=== PATIENT | male | born 1945 | race Caucasian/White ===

== ENCOUNTER 2017-10-04 09:26 | Inpatient (IN) | payer MEDICARE ==
[2017-09-27 17:13] LABS: BASOPHILS % (AUTO) 0.3 % (0-1); EOSINOPHILS # (AUTO) 0.1 X10'3 (0-0.9); EOSINOPHILS % (AUTO) 2.5 % (0-6); LYMPHOCYTES # (AUTO) 1.5 X10'3 (1.1-4.8); LYMPHOCYTES % (AUTO) 26.6 % (21-51); MEAN CORPUSCULAR HEMOGLOBIN 29.4 PG (27.0-31.0); MEAN CORPUSCULAR VOLUME 88.9 FL (78-98); MEAN PLATELET VOLUME 9.3 FL (7.4-10.4); MONOCYTES # (AUTO) 0.4 X10'3 (0-0.9); MONOCYTES % (AUTO) 6.4 % (2-12); NEUTROPHILS # (AUTO) 3.7 X10'3 (1.8-7.7); NEUTROPHILS % (AUTO) 64.2 % (42-75); PRE OP HEMATOCRIT 35.8 % (42.0-52.0); PRE OP HEMOGLOBIN 11.8 g/dL (14.0-17.9); PRE OP PLATELET COUNT 175 X10'3 (140-440); RED BLOOD COUNT 4.03 X10'6 (4.70-6.10)
[2017-09-27 17:21] LABS: CLARITY,URINE SLIGHTLY CLOUDY (Clear); COLOR,URINE YELLOW (Yellow); GLUCOSE, URINE NEGATIVE (Neg); KETONES,URINE TRACE mg/dl (Neg); LEUKOCYTE ESTERASE ,URINE NEGATIVE (Neg); NITRITES, URINE NEGATIVE (Neg); OCCULT BLOOD,URINE SMALL (Neg); PH,URINE 5.5 (4.8-8.0); PROTEIN,URINE TRACE mg/dl (Neg); UROBILINOGEN,URINE 0.2 E.U/dL (0.2-1.0)
[2017-09-27 17:29] LABS: ALBUMIN/GLOBULIN RATIO 1.3 (1.1-1.5); ALKALINE PHOSPHATASE 57 IU/L (46-116); BLOOD UREA NITROGEN 25 MG/DL (7-18); BUN/CREATININE RATIO 23.1 (5.4-32.0); CALCIUM 8.7 MG/DL (8.5-10.1); CHLORIDE 105 MMOL/L (99-107); CREATININE 1.08 MG/DL (0.60-1.10); PRE OP ALT 23 U/L (30-65); PRE OP ANION GAP 7 (8-16); PRE OP AST 19 U/L (10-37); PRE OP BILIRUB, TOTAL 0.4 MG/DL (0.0-1.0); PRE OP GLUCOSE 131 MG/DL (70-104); PRE OP POTASSIUM 4.9 MMOL/L (3.4-5.1); PRE OP SODIUM 140 MMOL/L (135-145); TOTAL CARBON DIOXIDE 28.2 MMOL/L (24-32); TOTAL PROTEIN 7.2 G/DL (6.4-8.2); eGFR 67 ML/MIN
[2017-09-27 17:32] LABS: UA COLLECTION TYPE VOIDED
[2017-09-27 17:34] LABS: BACTERIA,URINE FEW /HPF (Neg); MUCUS STRANDS MANY /LPF (Neg); RENAL CELLS, URINE FEW /HPF; SQUAMOUS EPITHELIAL CELL,UR FEW /LPF (FEW); TRANSITIONAL EPI CELLS,URINE FEW /HPF
[2017-10-04] VITALS (20 sets, daily range): BP systolic 104–131; BP diastolic 59–86
[~2017-10-04] VITALS: Ht 182.9 cm; Wt 96.3 kg
[2017-10-04] MEDS: potassium cl 20mEq in 1/2 NS 1,000 ML IV SCH ×2 (07:07→17:42)
[2017-10-04] MEDS: gabapentin 300mg capsule PO SCH ×3 (08:00→20:23)
[2017-10-04] MEDS: acetaminophen 325mg tablet PO SCH ×3 (08:00→20:23)
[~2017-10-04 09:26] MED LIST: ASPI-1190 PO; ASPI-611 PO; ATOR20TA PO; BRIM5DRO2 LEFTEYE; BUTA-281 PO; BUTA1CAP17 PO; CARB15DR2 EACHEYE; Cefazolin 2GM/50ML dext iso,osmotic IVPB IV ONE; DICL100G15 TOP; ESCI10TA PO; GLUC1TAB9 PO; HYDROmorphone inj. 0.5 MG/0.5 ML DISP.SYRIN IV PRN; LISI-604 PO; LUTE1CAP4 PO; MAGN400C PO; MELO15TA13 PO; META800T87 PO; MULT-1165 PO; OXYB10TA4 PO; PER10325T PO; SILO8CAP PO; VITAMIN B12 SL; [UNRECOGNIZED DRUG - CODE] PO; [UNRECOGNIZED DRUG - OTHER] PO; acetaminophen 325mg tablet PO ONE; acetaminophen 325mg tablet PO PRN; albuterol 2.5 MG/3 ML nebule NEB ONE; bisacodyl 10mg suppository rectal RC PRN; celeCOXIB 100mg capsule PO ONE; diphenhydrAMINE 25mg capsule PO PRN; famotidine 20mg tablet PO ONE; gabapentin 300mg capsule PO ONE; magnesium hydroxide 30ml (MOM) UD suspension PO PRN; metoclopramide 5 mg/ml inj IV ONE; ondansetron/PF 4mg/2ml inj IV PRN; oxyCODONE SR 10mg (sust. release) tab PO ONE; ringers solution, lacted 1,000 ML IV SCH; tranexamic acid inj. 1,000 MG in normal saline 100ml IV soln 90 ML IV ONE; vancomycin inj 1,500 MG in normal saline 300ml IV soln IV ONE
[2017-10-04] MEDS ORDERED: LIDOcaine 1% (10mg/ml) 2ml vial ONE (09:32)
[2017-10-04] MEDS ORDERED: cloNIDine hcl/PF 100mcg/ml inj ONE (10:12)
[2017-10-04] MEDS ORDERED: vancomycin 1,000mg inj ONE (10:12)
[2017-10-04] MEDS ORDERED: ketorolac trometh. 30mg/ml inj. ONE (10:12)
[2017-10-04] MEDS ORDERED: epiNEPHrine 1 mg/ml inj ONE (10:12)
[2017-10-04] MEDS ORDERED: ROPIVAcaine 0.5% (5mg/ml) 30ml vial ONE ×2 (10:13→10:53)
[2017-10-04] MEDS ORDERED: BUPIVAcaine/PF 7.5mg/ml (0.75%) 10ml vial ONE (10:53)
[2017-10-04] MEDS ORDERED: tetracaine 1% (10mg/ml) pres. free inj. ONE (10:54)
[2017-10-04] MEDS ORDERED: fentaNYL/PF 50MCG/1 ML 2ML syringe ONE (11:31)
[2017-10-04] MEDS ORDERED: MIDAZolam 1mg/ml 10ml vial ONE (11:31)
[2017-10-04] MEDS ORDERED: ringers solution, lacted 1,000 ML IV SCH (12:31)
[2017-10-04] MEDS ORDERED: proCHLORperazine 10 MG/2 ml inj IV PRN (12:35)
[2017-10-04] MEDS ORDERED: ondansetron/PF 4mg/2ml inj IV PRN (12:35)
[2017-10-04] MEDS ORDERED: meperidine/PF 25mg/ml syringe IV PRN ×3 (12:35)
[2017-10-04] MEDS ORDERED: morphine 4 MG/ML inj SYRINge IV PRN ×2 (12:35)
[2017-10-04] MEDS ORDERED: propofol inj 20 ML IV ONE (13:33)
[2017-10-04] MEDS: cefazolin/dext.iso 2gm/50ml 50 ML IV SCH (17:42)
[2017-10-04] MEDS: atorvastatin 20mg tablet PO SCH (20:23)
[2017-10-04] MEDS: sennosides 8.6mg tablet PO SCH (20:23)
[2017-10-04] MEDS: ascorbic acid 500mg tablet PO SCH (20:23)
[2017-10-04] MEDS: oxybutynin 5mg tablet PO SCH (22:35)
[2017-10-04] MEDS: oxyCODONE IR 5mg (immed. release) tablet PO PRN (22:36)
[2017-10-05] MEDS: acetaminophen 325mg tablet PO SCH ×4 (01:58→21:23)
[2017-10-05] MEDS: cefazolin/dext.iso 2gm/50ml 50 ML IV SCH (01:58)
[2017-10-05 02:00] VITALS: BP 111/41
[2017-10-05] MEDS: potassium cl 20mEq in 1/2 NS 1,000 ML IV SCH ×3 (05:05→23:07)
[2017-10-05] MEDS: oxyCODONE IR 5mg (immed. release) tablet PO PRN ×3 (05:09→22:10)
[2017-10-05 06:00] VITALS: BP 133/58
[2017-10-05 06:00] LABS: BASOPHILS % (AUTO) 0.1 % (0-1); EOSINOPHILS # (AUTO) 0.1 X10'3 (0-0.9); EOSINOPHILS % (AUTO) 0.7 % (0-6); HEMATOCRIT 29.3 % (42.0-52.0); HEMOGLOBIN 9.7 g/dl (14.0-17.9); LYMPHOCYTES # (AUTO) 0.9 X10'3 (1.1-4.8); LYMPHOCYTES % (AUTO) 8.6 % (21-51); MEAN CORPUSCULAR HEMOGLOBIN 29.3 PG (27.0-31.0); MEAN CORPUSCULAR HGB CONC 33.1 % (33.0-36.5); MEAN CORPUSCULAR VOLUME 88.5 FL (78-98); MEAN PLATELET VOLUME 9.6 FL (7.4-10.4); MONOCYTES # (AUTO) 0.5 X10'3 (0-0.9); MONOCYTES % (AUTO) 5.5 % (2-12); NEUTROPHILS # (AUTO) 8.5 X10'3 (1.8-7.7); NEUTROPHILS % (AUTO) 85.1 % (42-75); PLATELET COUNT 138 X10'3 (140-440); RED BLOOD COUNT 3.32 X10'6 (4.70-6.10); RED CELL DISTRIBUTION WIDTH 13.1 % (11.5-14.5)
[2017-10-05 06:14] LABS: ANION GAP 7 (8-16); CHLORIDE 106 MMOL/L (99-107); POTASSIUM 4.9 MMOL/L (3.5-5.1); SODIUM 140 MMOL/L (135-145); TOTAL CARBON DIOXIDE 26.7 MMOL/L (24-32)
[2017-10-05] MEDS: CITALOpram 10mg tablet PO SCH (07:42)
[2017-10-05] MEDS: gabapentin 300mg capsule PO SCH ×3 (07:43→21:23)
[2017-10-05] MEDS: lisinopril 5mg tablet PO SCH (07:43)
[2017-10-05] MEDS: oxybutynin 5mg tablet PO SCH ×2 (07:44→21:23)
[2017-10-05] MEDS: aspirin 325mg tablet PO SCH (07:44)
[2017-10-05] MEDS: magnesium oxide 400mg tablet PO SCH (07:44)
[2017-10-05] MEDS: multivitamins, therapeutics tablet PO SCH (07:45)
[2017-10-05] MEDS: ascorbic acid 500mg tablet PO SCH ×2 (07:45→21:22)
[2017-10-05] MEDS: beta-carotene(A) w/C & E + minerals tab PO SCH (07:45)
[2017-10-05 10:00] VITALS: BP 137/53
[2017-10-05] MEDS ORDERED: ASPI-1 PO (11:01)
[2017-10-05 14:00] VITALS: BP 103/49
[2017-10-05] MEDS ORDERED: HYDROmorphone 1 mg/ml syringe IV PRN (14:50)
[2017-10-05] MEDS: HYDROmorphone 1 mg/ml syringe IV PRN (15:17)
[2017-10-05 18:00] VITALS: BP 115/65
[2017-10-05] MEDS: sennosides 8.6mg tablet PO SCH (21:00)
[2017-10-05] MEDS: atorvastatin 20mg tablet PO SCH (21:22)
[2017-10-05 22:00] VITALS: BP 136/63
[2017-10-05] MEDS: celeCOXIB 100mg capsule PO SCH (22:10)
[2017-10-06] MEDS: HYDROmorphone 1 mg/ml syringe IV PRN (01:41)
[2017-10-06] MEDS: oxyCODONE IR 5mg (immed. release) tablet PO PRN ×2 (03:50→08:48)
[2017-10-06] MEDS: acetaminophen 325mg tablet PO SCH (03:51)
[2017-10-06 05:00] VITALS: BP 136/73
[2017-10-06 08:00] VITALS: BP 153/75
[2017-10-06] MEDS: oxybutynin 5mg tablet PO SCH (08:38)
[2017-10-06] MEDS: CITALOpram 10mg tablet PO SCH (08:38)
[2017-10-06] MEDS: celeCOXIB 100mg capsule PO SCH (08:38)
[2017-10-06] MEDS: magnesium oxide 400mg tablet PO SCH (08:39)
[2017-10-06] MEDS: gabapentin 300mg capsule PO SCH (08:39)
[2017-10-06] MEDS: beta-carotene(A) w/C & E + minerals tab PO SCH (08:39)
[2017-10-06] MEDS: lisinopril 5mg tablet PO SCH (08:40)
[2017-10-06] MEDS: ascorbic acid 500mg tablet PO SCH (08:40)
[2017-10-06] MEDS: multivitamins, therapeutics tablet PO SCH (08:40)
[2017-10-06] MEDS: aspirin 325mg tablet PO SCH (08:40)
== END 2017-10-06 10:20 | disposition home or self-care (01) | DRG 470 ==
LOC: PAS IN 09:26 → EDSTATUS 10:30 → ORTHO 4S 16:00 → UNDODISIN 10-05 11:15
PROVIDERS: ADMIT Orthopaedic Surgery; ATTEND Orthopaedic Surgery
PROC: 3E0T3BZ Introduction of Anesthetic Agent into Peripheral Nerves and Plexi, Percutaneous Approach (ICD-10-PCS; 2017-10-04)
PROC: 0SRC0J9 Replacement of Right Knee Joint with Synthetic Substitute, Cemented, Open Approach (ICD-10-PCS; principal; 2017-10-04 11:24)
DX: M17.11 Unilateral primary osteoarthritis, right knee (principal); D62 Acute posthemorrhagic anemia; J44.9 Chronic obstructive pulmonary disease, unspecified; E78.5 Hyperlipidemia, unspecified; M54.9 Dorsalgia, unspecified; F32.9 Major depressive disorder, single episode, unspecified; G43.909 Migraine, unspecified, not intractable, without status migrainosus; G47.30 Sleep apnea, unspecified; G89.29 Other chronic pain; I10 Essential (primary) hypertension; N40.0 Benign prostatic hyperplasia without lower urinary tract symptoms; Z79.899 Other long term (current) drug therapy; Z85.46 Personal history of malignant neoplasm of prostate; Z87.891 Personal history of nicotine dependence
CPT/HCPCS: 36415; 71046; 73560; 80051; 80053; 81001; 85025; 86885; 86900; 86901; 87070; 87088; 97110; 97116; 97161; 97530; A6449; A6455; A7000; A9272; C1713; C1776; J0171; J0690; J0735; J1170; J1885; J2250; J2704; J2765; J2795; J3010; J3370; J3490; J7030; J7120

== ENCOUNTER 2024-03-19 11:03 | Emergency (ER) | payer MEDICARE, OTHER ==
[~2024-03-19] VITALS: Ht 182.9 cm; Wt 98.6 kg
[~2024-03-19 11:03] MED LIST changes: +ASPI-1 PO; -ASPI-611 PO; +BUTA-245 PO; -BUTA-281 PO; -Cefazolin 2GM/50ML dext iso,osmotic IVPB IV ONE; -DICL100G15 TOP; -HYDROmorphone inj. 0.5 MG/0.5 ML DISP.SYRIN IV PRN; -LISI-604 PO; +LISI5TAB22 PO; -MELO15TA13 PO; -META800T87 PO; -MULT-1165 PO; +MULT-1210 PO; -PER10325T PO; -SILO8CAP PO; +SILO8CAP2 PO; -acetaminophen 325mg tablet PO ONE; -acetaminophen 325mg tablet PO PRN; -albuterol 2.5 MG/3 ML nebule NEB ONE; -bisacodyl 10mg suppository rectal RC PRN; -celeCOXIB 100mg capsule PO ONE; -diphenhydrAMINE 25mg capsule PO PRN; -famotidine 20mg tablet PO ONE; -gabapentin 300mg capsule PO ONE; -magnesium hydroxide 30ml (MOM) UD suspension PO PRN; -metoclopramide 5 mg/ml inj IV ONE; -ondansetron/PF 4mg/2ml inj IV PRN; -oxyCODONE SR 10mg (sust. release) tab PO ONE; -ringers solution, lacted 1,000 ML IV SCH; -tranexamic acid inj. 1,000 MG in normal saline 100ml IV soln 90 ML IV ONE; -vancomycin inj 1,500 MG in normal saline 300ml IV soln IV ONE
[2024-03-19 11:25] LABS: BASOPHILS # (AUTO) 0.1 X10'3 (0-0.2); BASOPHILS % (AUTO) 0.9 % (0-1); EOSINOPHILS # (AUTO) 0.2 X10'3 (0-0.9); EOSINOPHILS % (AUTO) 2.7 % (0-6); HEMATOCRIT 33.3 % (42.0-52.0); HEMOGLOBIN 10.9 g/dl (14.0-17.9); LYMPHOCYTES % (AUTO) 12.7 % (21-51); MEAN CORPUSCULAR HEMOGLOBIN 28.2 PG (27.0-31.0); MEAN CORPUSCULAR HGB CONC 32.9 g/dL (33.0-36.5); MEAN CORPUSCULAR VOLUME 85.6 FL (78-98); MEAN PLATELET VOLUME 7.9 FL (7.4-10.4); MONOCYTES # (AUTO) 0.5 X10'3 (0-0.9); MONOCYTES % (AUTO) 6.3 % (2-12); NEUTROPHILS # (AUTO) 6.1 X10'3 (1.8-7.7); NEUTROPHILS % (AUTO) 77.4 % (42-75); PLATELET COUNT 256 X10'3 (140-440); RED BLOOD COUNT 3.89 X10'6 (4.70-6.10); RED CELL DISTRIBUTION WIDTH 14.6 % (11.5-14.5); WHITE BLOOD COUNT 7.9 X10'3 (4.5-11.0)
[2024-03-19 11:50] LABS: ALANINE AMINOTRANSFERASE 45 U/L (12-78); ALBUMIN 3.3 G/DL (3.4-5.0); ALBUMIN/GLOBULIN RATIO 0.8 (1.1-1.5); ALKALINE PHOSPHATASE 108 IU/L (46-116); ANION GAP 7 (8-16); ASPARTATE AMINO TRANSFERASE 31 U/L (10-37); BILIRUBIN,TOTAL 0.9 MG/DL (0.1-1.0); BLOOD UREA NITROGEN 28 MG/DL (7-18); BUN/CREATININE RATIO 21.5 (10.0-20.0); CALCIUM 8.9 MG/DL (8.5-10.1); CHLORIDE 106 MMOL/L (99-107); GLUCOSE 174 MG/DL (70-104); POTASSIUM 4.5 MMOL/L (3.5-5.1); SODIUM 140 MMOL/L (135-145); TOTAL CARBON DIOXIDE 27.4 MMOL/L (24-32); TOTAL PROTEIN 7.2 G/DL (6.4-8.2); eCRCL 51 ML/MIN; eGFR 53 ML/MIN
[2024-03-19 11:57] LABS: PRO BRAIN NATRIURETIC PEPTIDE 3397 PG/ML (0-450)
[2024-03-19] MEDS ORDERED: adenosine 3mg/ml 2ml vial IV ONE ×2 (12:55)
[2024-03-19 13:10] LABS: MAGNESIUM 1.9 MG/DL (1.5-2.4)
[2024-03-19] MEDS: diltiazem 5mg/ml 5ml inj. IV ONE (13:49)
[2024-03-19 13:52] VITALS: TEMP 98.3
[2024-03-19] MEDS: metoprolol tartrate 50mg tablet PO ONE (14:01)
[2024-03-19 16:17] VITALS: BP 141/79; PULSE 93; RESP 21; O2SAT 95
== END 2024-03-19 16:09 | disposition home or self-care (01) ==
LOC: ER 11:04
DX: I48.91 Unspecified atrial fibrillation (principal); R00.0 Tachycardia, unspecified; I10 Essential (primary) hypertension; E11.9 Type 2 diabetes mellitus without complications; Z79.899 Other long term (current) drug therapy; Z79.82 Long term (current) use of aspirin
CPT/HCPCS: 36415; 71045; 80053; 83735; 83880; 84484; 85025; 93005; 96374; 99285; J3490; J7030